=== PATIENT | male | born 1975 | race Caucasian/White ===

== ENCOUNTER 2020-07-07 22:12 | Emergency (ER) | payer OTHER ==
[2020-07-07] MEDS ORDERED: ERYTHROMYCIN O3.5 GM OD (23:45)
== END 2020-07-07 23:57 | disposition home or self-care (01) ==
LOC: ER1 22:12
DX: T15.01XA Foreign body in cornea, right eye, initial encounter (principal); W22.8XXA Striking against or struck by other objects, initial encounter; Y92.009 Unspecified place in unspecified non-institutional (private) residence as the place of occurrence of the external cause
CPT/HCPCS: 65220; 99283

== ENCOUNTER 2021-10-15 15:24 | Emergency (ER) | payer OTHER, MEDICAID ==
[~2021-10-15 15:24] MED LIST: ERYTHROMYCIN O3.5 GM OD
== END 2021-10-15 20:45 | disposition home or self-care (01) ==
LOC: ER1 15:24
DX: S76.912A Strain of unspecified muscles, fascia and tendons at thigh level, left thigh, initial encounter (principal); S86.912A Strain of unspecified muscle(s) and tendon(s) at lower leg level, left leg, initial encounter; S86.112A Strain of other muscle(s) and tendon(s) of posterior muscle group at lower leg level, left leg, initial encounter; E11.9 Type 2 diabetes mellitus without complications; Z79.84 Long term (current) use of oral hypoglycemic drugs; V86.59XA Driver of other special all-terrain or other off-road motor vehicle injured in nontraffic accident, initial encounter; Y92.410 Unspecified street and highway as the place of occurrence of the external cause
CPT/HCPCS: 73552; 73564; 73590; 99283